=== PATIENT | male | born 1960 | race Caucasian/White ===

== ENCOUNTER → 2023-12-18 13:40 | Outpatient (REF) | payer BC, SELFPAY | LOC: DHCBC MAIN 13:40 | PROVIDERS: ATTENDING PHYSICIAN Internal Medicine Cardiovascular Disease; FAMILY PHYSICIAN Internal Medicine | DX: I25.810 Atherosclerosis of coronary artery bypass graft(s) without angina pectoris (principal); R53.83 Other fatigue; I77.810 Thoracic aortic ectasia | CPT/HCPCS: 93306 ==

== ENCOUNTER → 2023-12-25 09:40 | Outpatient (REF) | payer BC, SELFPAY ==
[2023-12-25 10:17] LABS: % Basophils 0.6 % (0-2); % Eosinophils 1.8 % (0-6); % Immature Granulocytes 0.3 % (0-0.5); % Lymphocytes 26.9 % (20.5-51.1); % Monocytes 9.1 % (1.7-9.3); % Neutrophils 61.3 % (42.2-75.2); Absolute Eosinophils 0.1 10^3/uL (0-0.7); Absolute Lymphocytes 1.8 10^3/uL (1.2-3.4); Absolute Monocytes 0.6 10^3/uL (0.1-0.6); Absolute Neutrophils 4.2 10^3/uL (1.4-6.5); Hematocrit 43.6 % (39.0-52.0); Hemoglobin 15.1 g/dL (13.0-18.0); Mean Corp Hgb Conc. 34.6 g/dL (33.0-37.0); Mean Corpuscular Hgb 35.4 pg (27.0-31.0); Mean Corpuscular Volume 102.1 fL (80.0-94.0); Mean Platelet Volume 9.8 fL (7.4-10.4); Nucleated Red Blood Cells % 0 % (-); Platelet Count 235 10^3/uL (130-400); Red Blood Cell Count 4.27 10^6/uL (4.70-6.10); Red Cell Dist. Width 12.9 % (11.5-14.5); White Blood Cell Count 6.8 10^3/uL (4.8-10.8)
[2023-12-25 11:03] LABS: ALT (SGPT) 37 U/L (0-50); AST (SGOT) 42 U/L (17-59); Albumin 3.7 g/dl (3.5-5.0); Alkaline Phosphatase 98 U/L (38-126); Blood Urea Nitrogen 20 mg/dl (9-20); Calcium 9.3 mg/dl (8.4-10.2); Carbon Dioxide 29 mmol/L (22-30); Chloride 104 mmol/L (98-107); Glucose 123 mg/dl (70-99); Potassium 4.2 mmol/L (3.5-5.1); Sodium 139 mmol/L (135-145); Total Bilirubin 0.6 mg/dl (0.2-1.3); Total Protein 6.4 g/dl (6.3-8.2); eGFR > 60.00
[2023-12-25 11:44] LABS: C-Reactive Protein < 5.00 mg/L (0.0-10.00)
[2023-12-25 11:47] LABS: Cortisol, Random 15.2 ug/dl; TSH Reflex To Free T4 1.61 uIU/ml (0.47-4.68)
[2023-12-25 12:17] LABS: Erythrocyte Sed Rate 1 mm/hour (0-20)
== END ==
LOC: REG 09:40
PROVIDERS: ATTENDING PHYSICIAN Internal Medicine
DX: R10.9 Unspecified abdominal pain (principal); R63.4 Abnormal weight loss; R53.1 Weakness; I10 Essential (primary) hypertension
CPT/HCPCS: 36415; 80053; 82533; 84443; 85025; 85652; 86140

== ENCOUNTER → 2024-01-07 14:45 | Outpatient (REF) | payer BC, SELFPAY | LOC: RAD 14:45 | PROVIDERS: ATTENDING PHYSICIAN Internal Medicine | DX: R53.1 Weakness (principal); I10 Essential (primary) hypertension | CPT/HCPCS: 74177; Q9967 ==

== ENCOUNTER → 2024-01-21 13:02 | Outpatient (REF) | payer BC, SELFPAY ==
[2024-01-24 00:45] LABS: HIV-1 Quan NAAT Interpretation Not Detected (Not Detected); HIV-1 Quant NAAT (copies/ml) Not Detected cpy/mL; HIV-1 Quant NAAT (log copy/mL) Not Detected log cpy/mL
== END ==
LOC: REG 13:02
PROVIDERS: ATTENDING PHYSICIAN Internal Medicine Infectious Disease; FAMILY PHYSICIAN Internal Medicine
DX: B20 Human immunodeficiency virus [HIV] disease (principal)
CPT/HCPCS: 36415; 87536

== ENCOUNTER → 2024-03-09 09:10 | Outpatient (REF) | payer BC, SELFPAY ==
[2024-03-11 12:06] LABS: HIV-1 Quan NAAT Interpretation Not Detected (Not Detected); HIV-1 Quant NAAT (copies/ml) Not Detected cpy/mL; HIV-1 Quant NAAT (log copy/mL) Not Detected log cpy/mL
== END ==
LOC: REG 09:10
PROVIDERS: ATTENDING PHYSICIAN Internal Medicine Infectious Disease; FAMILY PHYSICIAN Internal Medicine
DX: B20 Human immunodeficiency virus [HIV] disease (principal)
CPT/HCPCS: 36415; 87536

== ENCOUNTER → 2024-04-06 14:01 | Outpatient (REF) | payer BC, SELFPAY ==
[2024-04-06 15:16] LABS: ALT (SGPT) 28 U/L (0-50); AST (SGOT) 28 U/L (17-59); Alkaline Phosphatase 68 U/L (38-126); Blood Urea Nitrogen 17 mg/dl (9-20); Calcium 9.4 mg/dl (8.4-10.2); Carbon Dioxide 26 mmol/L (22-30); Chloride 102 mmol/L (98-107); Glucose 94 mg/dl (70-99); Potassium 4.4 mmol/L (3.5-5.1); Sodium 134 mmol/L (135-145); Total Bilirubin 0.7 mg/dl (0.2-1.3); Total Protein 6.3 g/dl (6.3-8.2); eGFR > 60.00
[2024-04-06 15:19] LABS: % Basophils 0.6 % (0-2); % Eosinophils 0.9 % (0-6); % Immature Granulocytes 0.3 % (0-0.5); % Lymphocytes 25.6 % (20.5-51.1); % Neutrophils 64.6 % (42.2-75.2); Absolute Eosinophils 0.1 10^3/uL (0-0.7); Absolute Lymphocytes 1.8 10^3/uL (1.2-3.4); Absolute Monocytes 0.6 10^3/uL (0.1-0.6); Absolute Neutrophils 4.4 10^3/uL (1.4-6.5); Hematocrit 44.4 % (39.0-52.0); Hemoglobin 15.1 g/dL (13.0-18.0); Mean Corpuscular Hgb 35.3 pg (27.0-31.0); Mean Corpuscular Volume 103.7 fL (80.0-94.0); Mean Platelet Volume 10.3 fL (7.4-10.4); Nucleated Red Blood Cells % 0 % (-); Platelet Count 215 10^3/uL (130-400); Red Blood Cell Count 4.28 10^6/uL (4.70-6.10); Red Cell Dist. Width 12.5 % (11.5-14.5); White Blood Cell Count 6.8 10^3/uL (4.8-10.8)
[2024-04-08 17:10] LABS: CD4 % of Cells Analyzed 40 % (35-68); CD4 Absolute Count 726 cells/uL (490-1600)
== END ==
LOC: REG 14:01
PROVIDERS: ATTENDING PHYSICIAN Internal Medicine Infectious Disease; FAMILY PHYSICIAN Internal Medicine
DX: B20 Human immunodeficiency virus [HIV] disease (principal); R10.9 Unspecified abdominal pain; R63.4 Abnormal weight loss; R53.1 Weakness; I10 Essential (primary) hypertension
CPT/HCPCS: 36415; 80053; 85025; 86361

== ENCOUNTER → 2024-05-27 11:33 | Outpatient (REF) | payer BC, SELFPAY ==
[2024-05-27 13:52] LABS: ALT (SGPT) 24 U/L (0-50); AST (SGOT) 29 U/L (17-59); Albumin 4.1 g/dl (3.5-5.0); Alkaline Phosphatase 78 U/L (38-126); Direct Bilirubin 0.1 mg/dl (0.0-0.4); HDL Cholesterol 75 mg/dl; LDL Cholesterol, Calculated 88 mg/dl; Total Bilirubin 0.7 mg/dl (0.2-1.3); Total Cholesterol 180 mg/dl (50-199); Total Protein 6.2 g/dl (6.3-8.2); Triglyceride 88 mg/dl (10-149); Very Low Density Lipoprotein 17 mg/dl (0-30)
== END ==
LOC: REG 11:33
PROVIDERS: ATTENDING PHYSICIAN Internal Medicine Cardiovascular Disease; FAMILY PHYSICIAN Internal Medicine
DX: E78.2 Mixed hyperlipidemia (principal); I25.810 Atherosclerosis of coronary artery bypass graft(s) without angina pectoris; R53.83 Other fatigue; E78.00 Pure hypercholesterolemia, unspecified
CPT/HCPCS: 36415; 80061; 80076

== ENCOUNTER → 2024-09-29 10:16 | Outpatient (REF) | payer BC, SELFPAY ==
[2024-09-29 11:34] LABS: % Basophils 0.6 % (0-2); % Eosinophils 1.9 % (0-6); % Immature Granulocytes 0.3 % (0-0.5); % Lymphocytes 28.8 % (20.5-51.1); % Monocytes 9.5 % (1.7-9.3); % Neutrophils 58.9 % (42.2-75.2); Absolute Eosinophils 0.1 10^3/uL (0-0.7); Absolute Monocytes 0.7 10^3/uL (0.1-0.6); Hematocrit 46.6 % (39.0-52.0); Mean Corp Hgb Conc. 34.3 g/dL (33.0-37.0); Mean Corpuscular Hgb 34.5 pg (27.0-31.0); Mean Corpuscular Volume 100.4 fL (80.0-94.0); Mean Platelet Volume 9.9 fL (7.4-10.4); Nucleated Red Blood Cells % 0 % (-); Platelet Count 213 10^3/uL (130-400); Red Blood Cell Count 4.64 10^6/uL (4.70-6.10); Red Cell Dist. Width 13.1 % (11.5-14.5); White Blood Cell Count 6.8 10^3/uL (4.8-10.8)
[2024-09-29 11:58] LABS: ALT (SGPT) 30 U/L (0-50); AST (SGOT) 32 U/L (17-59); Albumin 4.2 g/dl (3.5-5.0); Alkaline Phosphatase 56 U/L (38-126); Blood Urea Nitrogen 18 mg/dl (9-20); Calcium 9.3 mg/dl (8.4-10.2); Carbon Dioxide 29 mmol/L (22-30); Chloride 103 mmol/L (98-107); Glucose 98 mg/dl (70-99); HDL Cholesterol 69 mg/dl; LDL Cholesterol, Calculated 116 mg/dl; Potassium 4.7 mmol/L (3.5-5.1); Sodium 140 mmol/L (135-145); Total Bilirubin 0.8 mg/dl (0.2-1.3); Total Cholesterol 206 mg/dl (50-199); Total Protein 6.6 g/dl (6.3-8.2); Triglyceride 106 mg/dl (10-149); Very Low Density Lipoprotein 21 mg/dl (0-30); eGFR > 60.00
[2024-09-30 18:57] LABS: CD4 % of Cells Analyzed 28 % (35-68); CD4 Absolute Count 617 cells/uL
[2024-09-30 23:45] LABS: HIV-1 Quan NAAT Interpretation Not Detected (Not Detected); HIV-1 Quant NAAT (copies/ml) Not Detected cpy/mL; HIV-1 Quant NAAT (log copy/mL) Not Detected log cpy/mL
== END ==
LOC: REG 10:16
PROVIDERS: ATTENDING PHYSICIAN Internal Medicine Infectious Disease; FAMILY PHYSICIAN Internal Medicine
DX: B20 Human immunodeficiency virus [HIV] disease (principal); E78.00 Pure hypercholesterolemia, unspecified
CPT/HCPCS: 36415; 80053; 80061; 85025; 86361; 87536

== ENCOUNTER → 2024-10-22 15:32 | Outpatient (REF) | payer BC, SELFPAY | LOC: UCDH 15:32 | PROVIDERS: ATTENDING PHYSICIAN Emergency Medicine; FAMILY PHYSICIAN Internal Medicine | DX: S67.10XA Crushing injury of unspecified finger(s), initial encounter (principal) | CPT/HCPCS: 73140 ==

== ENCOUNTER → 2024-11-30 07:32 | Outpatient (REF) | payer BC, SELFPAY ==
[2024-11-30 08:57] LABS: % Basophils 0.3 % (0-2); % Eosinophils 1.5 % (0-6); % Immature Granulocytes 0.3 % (0-0.5); % Lymphocytes 34.4 % (20.5-51.1); % Monocytes 8.1 % (1.7-9.3); % Neutrophils 55.4 % (42.2-75.2); Absolute Eosinophils 0.1 10^3/uL (0-0.7); Absolute Lymphocytes 2.1 10^3/uL (1.2-3.4); Absolute Monocytes 0.5 10^3/uL (0.1-0.6); Absolute Neutrophils 3.4 10^3/uL (1.4-6.5); Hematocrit 48.3 % (39.0-52.0); Hemoglobin 16.5 g/dL (13.0-18.0); Mean Corp Hgb Conc. 34.2 g/dL (33.0-37.0); Mean Corpuscular Hgb 35.3 pg (27.0-31.0); Mean Corpuscular Volume 103.2 fL (80.0-94.0); Mean Platelet Volume 9.9 fL (7.4-10.4); Nucleated Red Blood Cells % 0 % (-); Platelet Count 198 10^3/uL (130-400); Red Blood Cell Count 4.68 10^6/uL (4.70-6.10); Red Cell Dist. Width 13.1 % (11.5-14.5); Reticulocyte Count 1.6 % (0.4-2.8); White Blood Cell Count 6.1 10^3/uL (4.8-10.8)
[2024-11-30 09:32] LABS: ALT (SGPT) 36 U/L (0-50); AST (SGOT) 29 U/L (17-59); Albumin 4.1 g/dl (3.5-5.0); Alkaline Phosphatase 73 U/L (38-126); Blood Urea Nitrogen 18 mg/dl (9-20); Calcium 9.2 mg/dl (8.4-10.2); Carbon Dioxide 27 mmol/L (22-30); Chloride 104 mmol/L (98-107); Glucose 88 mg/dl (70-99); Iron 102 ug/dl (49-181); Potassium 4.7 mmol/L (3.5-5.1); Sodium 137 mmol/L (135-145); Total Bilirubin 0.6 mg/dl (0.2-1.3); Total Protein 6.2 g/dl (6.3-8.2); eGFR > 60.00
[2024-11-30 09:52] LABS: Free T4 0.86 ng/dl (0.78-2.19)
[2024-11-30 10:01] LABS: ACTH Stim Cortisol 30 Min 18.6 ug/dl
[2024-11-30 10:02] LABS: ACTH Stim Cortisol 60 Min 18.3 ug/dl
[2024-11-30 10:06] LABS: Cortisol, Random 18.2 ug/dl; TSH 2.46 uIU/ml (0.47-4.68)
[2024-11-30 10:10] LABS: Ferritin 70.6 ng/ml (17.9-464.0)
[2024-11-30 10:25] LABS: Vitamin B12 778 pg/ml (239-931)
[2024-11-30 11:33] LABS: Percent Saturation 42 % (20-50); Total Iron Binding Capacity 242 ug/dl (261-462)
[2024-12-01 09:13] LABS: H. pylori Breath Test Negative (Negative)
[2024-12-02 00:45] LABS: % Free Testosterone 1.5 % (1.6-2.9); Free Testosterone 85 pg/mL (47-244); Sex Hormone Binding Globulin 51 nmol/L (19-76); Total Testosterone 572 ng/dL (300-720)
== END ==
LOC: REG 07:32
PROVIDERS: ATTENDING PHYSICIAN Physician Assistant; FAMILY PHYSICIAN Internal Medicine
DX: F41.9 Anxiety disorder, unspecified (principal); F32.A Depression, unspecified; R53.83 Other fatigue; B20 Human immunodeficiency virus [HIV] disease; Z95.1 Presence of aortocoronary bypass graft; K21.9 Gastro-esophageal reflux disease without esophagitis
CPT/HCPCS: 36415; 80053; 82533; 82607; 82728; 83013; 83540; 83550; 84270; 84402; 84403; 84439; 84443; 85025; 85045

== ENCOUNTER → 2025-01-05 12:38 | Outpatient (REF) | payer BC, SELFPAY | LOC: RCS 12:38 | PROVIDERS: ATTENDING PHYSICIAN Nurse Practitioner Gerontology; FAMILY PHYSICIAN Internal Medicine | DX: I25.10 Atherosclerotic heart disease of native coronary artery without angina pectoris (principal); Z95.1 Presence of aortocoronary bypass graft; I77.810 Thoracic aortic ectasia | CPT/HCPCS: 93306 ==

== ENCOUNTER → 2025-03-31 10:48 | Outpatient (REF) | payer BC, SELFPAY ==
[2025-03-31 11:40] LABS: % Basophils 0.4 % (0-2); % Eosinophils 0.3 % (0-6); % Immature Granulocytes 0.3 % (0-0.5); % Lymphocytes 23.5 % (20.5-51.1); % Monocytes 10.7 % (1.7-9.3); % Neutrophils 64.8 % (42.2-75.2); Absolute Lymphocytes 1.6 10^3/uL (1.2-3.4); Absolute Monocytes 0.8 10^3/uL (0.1-0.6); Absolute Neutrophils 4.5 10^3/uL (1.4-6.5); Mean Corp Hgb Conc. 36.4 g/dL (33.0-37.0); Mean Corpuscular Hgb 36.6 pg (27.0-31.0); Mean Corpuscular Volume 100.7 fL (80.0-94.0); Mean Platelet Volume 9.5 fL (7.4-10.4); Nucleated Red Blood Cells % 0 % (-); Platelet Count 226 10^3/uL (130-400); Red Blood Cell Count 4.37 10^6/uL (4.70-6.10); Red Cell Dist. Width 12.5 % (11.5-14.5)
[2025-03-31 12:05] LABS: ALT (SGPT) 39 U/L (0-50); AST (SGOT) 30 U/L (17-59); Albumin 4.1 g/dl (3.5-5.0); Alkaline Phosphatase 69 U/L (38-126); Blood Urea Nitrogen 16 mg/dl (9-20); Calcium 9.5 mg/dl (8.4-10.2); Carbon Dioxide 26 mmol/L (22-30); Chloride 106 mmol/L (98-107); Glucose 80 mg/dl (70-99); Potassium 4.7 mmol/L (3.5-5.1); Sodium 137 mmol/L (135-145); Total Bilirubin 0.6 mg/dl (0.2-1.3); Total Protein 6.5 g/dl (6.3-8.2); eGFR > 60.00
[2025-04-01 19:31] LABS: CD4 % of Cells Analyzed 30 % (35-68); CD4 Absolute Count 518 cells/uL (490-1600)
[2025-04-03 06:46] LABS: HIV-1 Quan NAAT Interpretation Detected (Not Detected); HIV-1 Quant NAAT (copies/ml) Not Quantified cpy/mL; HIV-1 Quant NAAT (log copy/mL) Not Quantified log cpy/mL
== END ==
LOC: REG 10:48
PROVIDERS: ATTENDING PHYSICIAN Internal Medicine Infectious Disease; FAMILY PHYSICIAN Internal Medicine
DX: B20 Human immunodeficiency virus [HIV] disease (principal)
CPT/HCPCS: 36415; 80053; 85025; 86361; 87536

== ENCOUNTER → 2025-04-21 14:04 | Outpatient (REF) | payer BC, SELFPAY ==
[2025-04-21 16:33] LABS: Free T4 0.95 ng/dl (0.78-2.19)
[2025-04-21 16:47] LABS: TSH 1.76 uIU/ml (0.47-4.68)
== END ==
LOC: REG 14:04
PROVIDERS: ATTENDING PHYSICIAN Internal Medicine
DX: R05.1 Acute cough (principal); R53.83 Other fatigue
CPT/HCPCS: 36415; 71046; 84439; 84443

== ENCOUNTER → 2025-05-24 14:09 | Outpatient (REF) | payer BC, SELFPAY | LOC: REG 14:09 | PROVIDERS: ATTENDING PHYSICIAN Internal Medicine Infectious Disease; FAMILY PHYSICIAN Internal Medicine | DX: B20 Human immunodeficiency virus [HIV] disease (principal) | CPT/HCPCS: 36415; 87536 ==

== ENCOUNTER → 2025-06-29 11:55 | Outpatient (REF) | payer BC, SELFPAY ==
[2025-07-01 23:31] LABS: HIV-1 Quan NAAT Interpretation Not Detected (Not Detected); HIV-1 Quant NAAT (copies/ml) <20 cpy/mL; HIV-1 Quant NAAT (log copy/mL) <1.30 log cpy/mL
== END ==
LOC: REG 11:55
PROVIDERS: ATTENDING PHYSICIAN Internal Medicine Infectious Disease; FAMILY PHYSICIAN Internal Medicine
DX: B20 Human immunodeficiency virus [HIV] disease (principal)
CPT/HCPCS: 36415; 87536

== ENCOUNTER → 2025-08-17 10:32 | Outpatient (REF) | payer BC, SELFPAY ==
[2025-08-20 01:49] LABS: HIV-1 Quan NAAT Interpretation Not Detected (Not Detected); HIV-1 Quant NAAT (copies/ml) Not Detected cpy/mL; HIV-1 Quant NAAT (log copy/mL) Not Detected log cpy/mL
== END ==
LOC: REG 10:32
PROVIDERS: ATTENDING PHYSICIAN Internal Medicine Infectious Disease; FAMILY PHYSICIAN Internal Medicine
DX: B20 Human immunodeficiency virus [HIV] disease (principal)
CPT/HCPCS: 36415; 87536

== ENCOUNTER → 2025-09-13 07:55 | Outpatient (REF) | payer BC, SELFPAY ==
[2025-09-13 09:25] LABS: Hematocrit 48.0 % (39.0-52.0); Hemoglobin 16.5 g/dL (13.0-18.0); Mean Corp Hgb Conc. 34.4 g/dL (33.0-37.0); Mean Corpuscular Volume 103.7 fL (80.0-94.0); Nucleated Red Blood Cells % 0 % (-); Platelet Count 172 10^3/uL (130-400); Red Cell Dist. Width 12.8 % (11.5-14.5)
[2025-09-13 09:52] LABS: ALT (SGPT) 60 U/L (0-50); AST (SGOT) 38 U/L (17-59); Albumin 3.9 g/dl (3.5-5.0); Alkaline Phosphatase 70 U/L (38-126); Blood Urea Nitrogen 24 mg/dl (9-20); Calcium 8.7 mg/dl (8.4-10.2); Carbon Dioxide 28 mmol/L (22-30); Chloride 106 mmol/L (98-107); Glucose 100 mg/dl (70-99); Potassium 4.2 mmol/L (3.5-5.1); Sodium 139 mmol/L (135-145); Total Protein 6.3 g/dl (6.3-8.2); eGFR > 60.00
== END ==
LOC: RAD 07:55
PROVIDERS: ATTENDING PHYSICIAN Physician Assistant
DX: F41.1 Generalized anxiety disorder (principal); F33.1 Major depressive disorder, recurrent, moderate; R25.1 Tremor, unspecified; R35.0 Frequency of micturition; R05.2 Subacute cough; Z21 Asymptomatic human immunodeficiency virus [HIV] infection status; Z95.1 Presence of aortocoronary bypass graft; R53.83 Other fatigue
CPT/HCPCS: 36415; 71046; 80053; 84270; 84402; 84403; 85025

== ENCOUNTER → 2025-10-12 13:35 | Outpatient (REF) | payer BC, SELFPAY ==
[2025-10-12 14:20] LABS: Hematocrit 42.5 % (39.0-52.0); Hemoglobin 14.3 g/dL (13.0-18.0); Mean Corp Hgb Conc. 33.6 g/dL (33.0-37.0); Mean Corpuscular Volume 102.9 fL (80.0-94.0); Nucleated Red Blood Cells % 0 % (-); Platelet Count 218 10^3/uL (130-400); Red Cell Dist. Width 13.8 % (11.5-14.5)
[2025-10-12 15:47] LABS: ALT (SGPT) 37 U/L (0-50); AST (SGOT) 35 U/L (17-59); Albumin 3.8 g/dl (3.5-5.0); Alkaline Phosphatase 82 U/L (38-126); Blood Urea Nitrogen 13 mg/dl (9-20); Calcium 9.1 mg/dl (8.4-10.2); Carbon Dioxide 25 mmol/L (22-30); Chloride 105 mmol/L (98-107); Glucose 82 mg/dl (70-99); Potassium 4.5 mmol/L (3.5-5.1); Sodium 135 mmol/L (135-145); Total Protein 6.0 g/dl (6.3-8.2); eGFR > 60.00
[2025-10-14 20:24] LABS: CD4 % of Cells Analyzed 40 % (35-68); CD4 Absolute Count 607 cells/uL
== END ==
LOC: REG 13:35
PROVIDERS: ATTENDING PHYSICIAN Internal Medicine Infectious Disease
DX: B20 Human immunodeficiency virus [HIV] disease (principal)
CPT/HCPCS: 36415; 80053; 85025; 86361; 87536

== ENCOUNTER 2025-10-17 08:42 | Emergency (ER) | payer BC, SELFPAY ==
[2025-10-17 08:43] VITALS: BP 100/64
--- NOTE | 2025-10-17 09:04 | ED.GENMED ---
History of Present Illness
General
Chief Complaint: Extremity Pain (non-traumatic)
Source: patient
Exam Limitations: none
Time Seen by Provider: 10/17/25 08:48
Nursing documentation reviewed up to this point in time: agreed with
History of Present Illness
History of Present Illness:
Patient is a 64-year-old male with history hypertension, hyperlipidemia, HIV who presents to the emergency department with atraumatic right knee/calf pain. Patient states pain has been progressively worsening over the course of the past week. He
describes pain at the medial aspect of his right knee radiating down his medial calf, worse with ambulation and movement. He noticed mild swelling to his right calf. He denies any associated fever, chills, numbness/tingling or weakness in
extremities. He denies any chest pain or shortness of breath.
Patient was seen in urgent care facility this morning and sent to the emergency department for further imaging with ultrasound to rule out DVT.
He denies any known falls or trauma however apparently has been sleepwalking recently after starting new medication.
No recent travel or recent surgeries. No history of blood clots/clotting disorders.
Past History
Past History
ED Past Medical History: CAD, HTN, Hypercholesterolemia and Other (HIV+)
ED Past Surgical History: Cardiac (Cardiac catheterization)
Social History
Tobacco: Smoker
Alcohol: None
Drug: None
Personal: Partner
Living: with family
Employment: Employed
Family History
Family History: CAD
Review of Systems
Review of Systems
Allergies reviewed?: Yes
All Other Systems: ROS reviewed and negative except as documented in HPI and ROS
Phy Exam
Physical Exam
Physical Exam:
Vitals: Patient's vital signs are stable. Afebrile
General: Patient is well appearing, no acute distress
Skin: Warm and dry, no rashes or lesions
Head: Normocephalic, atraumatic
Throat: Protecting airway
Neck: Normal ROM, no cervical spine tenderness
Cardiac: Regular rate
Pulm: No apparent respiratory distress
Abdomen: Nondistended
Extremities: Mild diffuse edema right ankle extending up to mid calf with reproducible tenderness at medial aspect of right knee and medial aspect of right calf. No knee effusion. No erythema or warmth of right knee. No bony tenderness of right
lower extremity. Patient has full ability to flex/extend right knee with minimal pain. 2+ palpable right DP and popliteal pulse with normal sensation.
Neuro: Grossly intact
Psychiatric: Normal affect.
Course
Orders/Labs/Results
Orders:
Orders
10/17/25 09:00
Acetaminophen [Tylenol] 1,000 mg PO NOW STA
Knee, Right 4 or More Views [CR Knee- Right 4 Or More View*] Urgent
Comment:
Reason For Exam: Atraumatic right knee pain
US Legs, Right [US Periph Venous LOWER Ext RT] Urgent
Comment:
Reason For Exam: atraumatic right knee / calf pain
Vital Signs
Initial and Last Documented VS:
Initial Vital Signs
Temp Pulse Resp BP Pulse Ox
97.4 F 66 18 100/64 98
10/17/25 08:43 10/17/25 08:43 10/17/25 08:43 10/17/25 08:43 10/17/25 08:43
Last Documented Vital Signs
Temp Pulse Resp BP Pulse Ox
97.4 F 66 18 100/64 98
10/17/25 08:43 10/17/25 08:43 10/17/25 08:43 10/17/25 08:43 10/17/25 09:05
MDM/Problems Addressed
Differential Diagnosis Includes:
Not limited to: Ligamentous injury of right knee, osteoarthritis, DVT, Banuelos's cyst, cellulitis, etc.
MDM/Problems Addressed:
64-year-old male with atraumatic right knee/calf pain X 1 week. No known falls or trauma. No fever or infectious symptoms. He has been able to ambulate with mild discomfort. Vitals stable. On exam, patient has mild edema and tenderness at
medial aspect of right knee and right calf. No obvious deformity or bony tenderness of RLE. No overlying skin changes including significant erythema or warmth. No open wounds. Right lower extremity neurovascularly intact.
Will obtain ultrasound to rule out DVT. Given recent history of sleepwalking will check x-ray in case of accidental trauma however overall low suspicion for bony injury. No findings consistent with cellulitis or infectious process. No evidence of
neurovascular compromise. Will give Tylenol
Update: X-ray of right knee without acute fracture or dislocation. Right lower extremity ultrasound without evidence of DVT however does note likely partially ruptured Banuelos's cyst in right popliteal space extending into right calf. This is likely
contributing to patient's symptoms. He is able to ambulate. Discussed knee immobilizer however patient declines. He has crutches at home that she will use in order to ambulate. Advise rest, ice, Tylenol for pain and orthopedic follow-up
outpatient. Return precautions discussed.
Chronic conditions affecting care:
N/A
Acute Exacerbation and/or Progression of Chronic Illness:
N/A
*Radiology
Radiology exam reviewed: radiology read reviewed
*Pulse Oximetry
SaO2: 98
Oxygen Mode of Delivery: Room air
Patient hypoxic: no
*EKG
Interpreted by ED Provider?: NA
*Lead Cytogenetic Technologist Interpretation
Rate: Lead Cytogenetic Technologist- N/A
*Critical Care Note
Total Time (30-74mins, 75-104mins- exclusive of procedures): Not Applicable
ED Attending Note
-
Portions of this chart may have been created with voice recognition software.� Occasional wrong word or��sound alike� substitutions may have occurred due to the inherent limitations of voice recognition software.
Discharge Plan
Departure
Patient Disposition: Home (Routine Discharge)
Date of Disposition: 10/17/25
Time of Disposition: 10:48
Patient with high blood pressure during this ER visit?: No
Condition: Good
Discharge Problem:
Pain of right calf, Banuelos's cyst of knee
Instructions: Banuelos's Cyst (DC)
Prescriptions:
No Action
clopidogrel 75 MG tablet
75 mg PO HS
ritonavir 100 MG tablet
100 mg PO HS
omeprazole 40 MG capsule,delayed release(DR/EC)
40 mg PO HS
alprazolam 0.25 MG tablet
0.25 mg PO Q8HPRN PRN (Reason: anxiety)
citalopram 20 MG tablet
40 mg PO HS
nitroglycerin 0.4 MG tablet, sublingual
0.4 mg sublingual [id number] PRN (Reason: chest pain)
tenofovir disoproxil fumarate 300 MG tablet
300 mg PO HS
Patient Comments:
zolpidem 5 MG tablet
5 mg PO HSPRN PRN (Reason: insomnia)
metoprolol succinate 25 MG tablet extended release 24 hr
25 mg PO HS
abacavir-lamivudine 1 EACH tablet
1 ea PO HS
atazanavir 300 MG capsule
300 mg PO HS
Patient Comments:
ajfrpzyxglo-ypmwwfkfgdj-hil C 1 TAB tablet
1 dose PO HS
aspirin 81 MG tablet,delayed release (DR/EC)
81 mg PO DAILY Qty: 30 3RF
oxycodone 5 MG tablet
5 mg PO Q6HPRN PRN (Reason: moderate to severe pain) Qty: 10 0RF
Rx Instructions:
take 1/2 to one tablet every 6hrs as needed for surgical pain
rosuvastatin 20 MG tablet
20 mg PO QPM Qty: 30 3RF
Referrals:
Hector Altamirano MD [Active, Orthopedics] - Next open appointment
Kenneth Mark MD [Family Provider, Internal Medicine]
Activity Restrictions/Additional Instructions:
RETURN TO THE EMERGENCY DEPARTMENT WITH ANY FEVER, CHEST PAIN OR SHORTNESS OF BREATH, REDNESS/WARMTH OR SIGNIFICANT WORSENING IN SWELLING IN RIGHT LOWER EXTREMITY, OR ANY OTHER CONCERNS
- As discussed, the ultrasound showed no evidence of a blood clot in your right lower leg. It did note a Banuelos's cyst/partially ruptured cyst which is likely contributing to your symptoms.
- Please continue to ice, elevate right leg. You can apply an Yemi wrap/knee brace for comfort. You can use crutches at home as needed for ambulation. Take Tylenol as needed for pain
- Follow-up with orthopedics for further evaluation/management. You may require further imaging
Monitor your symptoms closely return to the emergency department with any acute worsening/new symptoms or any other concerns
Interventions
Interventions:
*General Assessment Last Done: 10/17/25 08:43
*ED COVID-19 Vaccine History Last Done: 10/17/25 08:43
*ED Influenza Vaccine History Last Done: 10/17/25 08:43
*Risk Screen - Suicide (C-SSRS) Last Done: 10/17/25 08:43
*Nursing Disposition Last Done: 10/17/25 10:30
ED-Skin Assessment Last Done: 10/17/25 10:27
ED-Peripheral Vascular Assessment Last Done: 10/17/25 10:27
ED-Musculoskeletal Assessment Last Done: 10/17/25 10:27
Discharge Date and Time
Discharge Date/Time: 10/17/25 10:50
Print Language: URDU
[2025-10-17] MEDS: TYLENOL 1000 MG PO (09:21)
== END 2025-10-17 10:50 | disposition home or self-care (01) ==
LOC: EMR 08:42
PROVIDERS: EMERGENCY PHYSICIAN Emergency Medicine; FAMILY PHYSICIAN Internal Medicine
DX: M79.661 Pain in right lower leg (principal); M71.21 Synovial cyst of popliteal space [Baker], right knee; I25.10 Atherosclerotic heart disease of native coronary artery without angina pectoris; I10 Essential (primary) hypertension; E78.00 Pure hypercholesterolemia, unspecified; Z21 Asymptomatic human immunodeficiency virus [HIV] infection status; F17.200 Nicotine dependence, unspecified, uncomplicated; Z79.02 Long term (current) use of antithrombotics/antiplatelets; Z82.49 Family history of ischemic heart disease and other diseases of the circulatory system
CPT/HCPCS: 99284; 73564; 93971